=== PATIENT | female | born 1980 | race Caucasian/White ===

== ENCOUNTER 2019-02-10 00:59 | Emergency (ER) | payer OTHER ==
[~2019-02-10] VITALS: Ht 172.7 cm; Wt 104.3 kg
[~2019-02-10 00:59] MED LIST: ACETAMINOPHEN-1 EAC1 PO; ADVIL200 M2 PO; BACTRIM DS TAB1 EACH PO; COUGH MEDICATION; NORCO 5-325 TA1 EACH PO; PHENERGAN 25 MG25 MG PO; VICODIN 5-5001 EACH PO
[2019-02-10 01:04] VITALS: BP 166/85
[2019-02-10] MEDS ORDERED: GENTAK5 ML TOP (01:17)
== END 2019-02-10 01:33 | disposition home or self-care (01) ==
LOC: M.ERS 00:59
DX: H01.004 Unspecified blepharitis left upper eyelid (principal); B30.9 Viral conjunctivitis, unspecified; Z98.890 Other specified postprocedural states; Z98.51 Tubal ligation status

== ENCOUNTER 2019-03-22 17:07 | Emergency (ER) | payer OTHER ==
[~2019-03-22] VITALS: Ht 157.5 cm; Wt 96.6 kg
[~2019-03-22 17:07] MED LIST changes: +GENTAK5 ML TOP
[2019-03-22] MEDS ORDERED: IBUPROFEN 800800 MG PO (18:00)
[2019-03-22] MEDS ORDERED: KEFLEX500 M1 PO (18:00)
[2019-03-22 18:25] VITALS: BP 184/84
== END 2019-03-22 18:27 | disposition home or self-care (01) ==
LOC: M.ERS 17:07
DX: S91.111A Laceration without foreign body of right great toe without damage to nail, initial encounter (principal); F17.200 Nicotine dependence, unspecified, uncomplicated; Z98.890 Other specified postprocedural states; W20.8XXA Other cause of strike by thrown, projected or falling object, initial encounter; Y93.01 Activity, walking, marching and hiking; Y92.89 Other specified places as the place of occurrence of the external cause; Y99.8 Other external cause status

== ENCOUNTER 2019-06-18 10:16 | Emergency (ER) | payer OTHER ==
[~2019-06-18] VITALS: Ht 175.3 cm; Wt 99.8 kg
[~2019-06-18 10:16] MED LIST changes: +IBUPROFEN 800800 MG PO; +KEFLEX500 M1 PO
[2019-06-18 10:57] LABS: ABSOLUTE BASOPHILS 0.1 thou/uL (0.0-0.2); ABSOLUTE EOSINOPHILS 0.2 thou/uL (0.0-0.7); ABSOLUTE LYMPHOCYTES 1.7 thou/uL (0.8-5.3); ABSOLUTE MONOCYTES 0.9 thou/uL (0.0-1.2); ABSOLUTE NEUTROPHILS 6.4 thou/uL (1.6-8.1); BASOPHILS 0.9 %; HEMATOCRIT 41.2 % (37.0-47.0); LYMPHOCYTES 18.3 %; MCH 29.9 pg (26.0-34.0); MCV 87.8 fL (80.0-100.0); MONOCYTES 9.8 %; NUCLEATED RBCS 0 /100WBC; PLATELET COUNT* 332 thou/uL (150-400); RBC 4.69 mil/uL (4.20-5.00); RDW-CV 13.6 % (10.5-14.5); WBC 9.2 thou/uL (4.0-11.0)
[2019-06-18 11:03] LABS: CREATININE 0.9 mg/dL (0.6-1.3)
[2019-06-18 11:08] LABS: ALBUMIN 3.2 g/dL (3.4-5.0); TOTAL BILIRUBIN 0.4 mg/dL (<0.1-1.0); TOTAL PROTEIN 7.9 g/dL (6.4-8.2)
[2019-06-18 11:32] LABS: URINE BILIRUBIN NEGATIVE (Negative); URINE BLOOD NEGATIVE (Negative); URINE CLARITY CLEAR; URINE COLOR YELLOW; URINE GLUCOSE-RANDOM NEGATIVE (Negative); URINE KETONES NEGATIVE (Negative); URINE LEUKOCYTES-REFLEX 1+ (Negative); URINE NITRITE-REFLEX POSITIVE (Negative); URINE PROTEIN NEGATIVE (Negative); URINE SPECIFIC GRAVITY 1.025 (1.005-1.030); URINE UROBILINOGEN 0.2 E.U./dl (0.2-1.0)
[2019-06-18 11:37] LABS: BACTERIA-REFLEX >30 Many /HPF (None Seen); CASTS None Seen /LPF (None Seen); CRYSTALS None Seen /LPF (None Seen); MUCUS 4-6 Moderate strn/LPF (None Seen); SQUAMOUS 4-10 Moderate /LPF (0-3); URINE RBC 0-2 Rare /HPF (0-2); URINE WBC-REFLEX 6-15 Few /HPF (0-5)
[2019-06-18] MEDS ORDERED: NORCO 5-325 TA1 EAC1 PO (12:35)
[2019-06-18] MEDS ORDERED: KEFLEX500 M1 PO (12:35)
[2019-06-18] MEDS ORDERED: ZOFRAN ODT4 MG DISSOLVE (12:35)
[2019-06-18 13:04] VITALS: BP 133/86
== END 2019-06-18 13:04 | disposition home or self-care (01) ==
LOC: M.ERS 10:16
PROVIDERS: Emergency Medicine Emergency Medical Services
DX: N12 Tubulo-interstitial nephritis, not specified as acute or chronic (principal); Z98.890 Other specified postprocedural states

== ENCOUNTER 2019-12-02 21:19 | Emergency (ER) | payer OTHER ==
[~2019-12-02] VITALS: Ht 175.3 cm; Wt 136.1 kg
[~2019-12-02 21:19] MED LIST changes: +NORCO 5-325 TA1 EAC1 PO; +ZOFRAN ODT4 MG DISSOLVE
[2019-12-02 21:45] VITALS: BP 145/70
== END 2019-12-02 21:46 | disposition home or self-care (01) ==
LOC: M.ERS 21:19
DX: S80.862A Insect bite (nonvenomous), left lower leg, initial encounter (principal); Z98.890 Other specified postprocedural states; Z98.51 Tubal ligation status; W57.XXXA Bitten or stung by nonvenomous insect and other nonvenomous arthropods, initial encounter; Y93.89 Activity, other specified; Y92.89 Other specified places as the place of occurrence of the external cause; Y99.8 Other external cause status

== ENCOUNTER 2020-04-11 10:35 | Emergency (ER) | payer OTHER ==
[~2020-04-11] VITALS: Ht 175.3 cm; Wt 122.5 kg
[2020-04-11 11:23] LABS: INFLUENZA A ANTIGEN Negative (Negative); INFLUENZA B ANTIGEN Negative (Negative)
[2020-04-11 12:59] LABS: ABSOLUTE BASOPHILS 0.1 thou/uL (0.0-0.2); ABSOLUTE LYMPHOCYTES 0.4 thou/uL (0.8-5.3); ABSOLUTE MONOCYTES 0.8 thou/uL (0.0-1.2); ABSOLUTE NEUTROPHILS 4.2 thou/uL (1.6-8.1); EOSINOPHILS 0.7 %; HEMATOCRIT 35.7 % (37.0-47.0); HEMOGLOBIN 11.8 gm/dL (12.0-15.0); LYMPHOCYTES 7.9 %; MCH 29.2 pg (26.0-34.0); MCHC 33.2 g/dL (28.0-37.0); MCV 87.9 fL (80.0-100.0); MONOCYTES 15.1 %; MPV 7.5 fl. (7.2-11.1); NUCLEATED RBCS 0 /100WBC; PLATELET COUNT* 246 thou/uL (150-400); POLYS 75.3 %; RBC 4.06 mil/uL (4.20-5.00); RDW-CV 13.4 % (10.5-14.5); WBC 5.5 thou/uL (4.0-11.0)
[2020-04-11 13:09] LABS: CALCIUM 7.7 mg/dL (8.5-10.1); CREATININE 0.9 mg/dL (0.6-1.3)
[2020-04-11 13:14] LABS: ALBUMIN 2.8 g/dL (3.4-5.0); TOTAL BILIRUBIN 0.3 mg/dL (<0.1-1.0); TOTAL PROTEIN 6.5 g/dL (6.4-8.2)
[2020-04-11 15:41] VITALS: BP 124/78
--- NOTE | 2020-04-11 16:35 | EKG ---
[place] [address] ELECTROCARDIOGRAM REPORT Name: TRACY HALL Room: [facility]#: [id number] Admission: 04/11/20 Attend Phys: Discharge: 04/11/20 Date of : 78 Date of Service: 04/11/20 1324 Report #: [id number] THIS REPORT FOR: //name// [facility] ED Test Date: 2020-04-11 Test Time: 13:24:39 Pat Name: TRACY HALL Department: Room: Gender: F Machine Fitter: KAITLYNN : 1980 Requested By: Juancarlos Marino Order Number: [id number] MD: Lex Sanchez Measurements Intervals [place] Rate: 105 P: 64 MS: 138 QRS: 47 QRSD: 89 T: 58 QT: 331 QTc: 438 Interpretive Statements Sinus tachycardia Baseline wander in lead(s) V2 No previous ECG available for comparison Electronically Signed On 04-11-2020 16:35:21 PLASTIC MANAGER by Lex Sanchez [email or web address] <ELECTRONICALLY SIGNED> By: Lex Sanchez MD, [facility] 04/11/20 1635 1324 23 Lex Sanchez MD, FAC /EPI
== END 2020-04-11 15:44 | disposition home or self-care (01) ==
LOC: M.ERS 10:35
PROVIDERS: Emergency Medicine Emergency Medical Services
DX: U07.1 COVID-19 (principal)

== ENCOUNTER 2020-04-23 05:40 | Emergency (ER) | payer OTHER ==
[~2020-04-23] VITALS: Ht 172.7 cm; Wt 104.3 kg
[2020-04-23 06:19] VITALS: BP 155/93
--- NOTE | 2020-04-23 15:13 | EKG ---
[place] [address] ELECTROCARDIOGRAM REPORT Name: TRACY HALL Room: [facility]#: [id number] Admission: 04/23/20 Attend Phys: Discharge: 04/23/20 Date of : 78 Date of Service: 04/23/20 0554 Report #: [id number] THIS REPORT FOR: //name// [facility] ED Test Date: 2020-04-23 Test Time: 05:54:19 Pat Name: TRACY HALL Department: Room: Gender: F It Investment/Portfolio Manager: NETTA : 1980 Requested By: Chioma Abreu Order Number: [id number] MD: Bayron Mccoy Measurements Intervals [place] Rate: 110 P: 68 [place]: 142 QRS: 47 QRSD: 89 T: 56 QT: 338 QTc: 458 Interpretive Statements Sinus tachycardia Minimal ST depression, lateral leads Compared to ECG 04/11/2020 13:24:39 ST (T wave) deviation now present Electronically Signed On 04-23-2020 15:13:11 DIRECTOR OF BUSINESS SYSTEMS by Bayron Mccoy [email or web address] <ELECTRONICALLY SIGNED> By: Bayron Mccoy MD, FAC 04/23/20 1513 0554 0554 Bayron Mccoy MD, [facility] /EPI
== END 2020-04-23 06:19 | disposition left against medical advice (07) ==
LOC: M.ERS 05:40
DX: R07.89 Other chest pain (principal); I10 Essential (primary) hypertension

== ENCOUNTER 2020-12-08 16:20 | Emergency (ER) | payer OTHER ==
[~2020-12-08] VITALS: Ht 172.7 cm; Wt 108.9 kg
[2020-12-08] MEDS ORDERED: IBUPROFEN 800800 M1 PO (17:35)
[2020-12-08 18:05] VITALS: BP 135/93
== END 2020-12-08 18:05 | disposition home or self-care (01) ==
LOC: M.ERS 16:20
DX: S93.492A Sprain of other ligament of left ankle, initial encounter (principal); S93.692A Other sprain of left foot, initial encounter; Z87.891 Personal history of nicotine dependence; W10.8XXA Fall (on) (from) other stairs and steps, initial encounter; Y93.89 Activity, other specified; Y92.89 Other specified places as the place of occurrence of the external cause; Y99.8 Other external cause status

== ENCOUNTER 2021-02-10 05:29 | Emergency (ER) | payer OTHER ==
[~2021-02-10] VITALS: Ht 172.7 cm; Wt 108.9 kg
[~2021-02-10 05:29] MED LIST changes: +IBUPROFEN 800800 M1 PO
[2021-02-10 06:12] LABS: HEMATOCRIT 45.9 % (37.0-47.0); HEMOGLOBIN 15.2 gm/dL (12.0-15.0); MCH 29.7 pg (26.0-34.0); MCHC 33.2 g/dL (28.0-37.0); MCV 89.5 fL (80.0-100.0); MPV 7.6 fl. (7.2-11.1); RBC 5.13 mil/uL (4.20-5.00); RDW-CV 14.2 % (10.5-14.5); WBC 17.4 thou/uL (4.0-11.0)
[2021-02-10 06:20] LABS: CALCIUM 9.2 mg/dL (8.5-10.1); CREATININE 1.1 mg/dL (0.6-1.3); POTASSIUM 4.2 mmol/L (3.5-5.1)
[2021-02-10 06:21] LABS: INFLUENZA A ANTIGEN Negative (Negative); INFLUENZA B ANTIGEN Negative (Negative)
[2021-02-10 06:25] LABS: ALBUMIN 3.5 g/dL (3.4-5.0); TOTAL BILIRUBIN 0.6 mg/dL (<0.1-1.0); TOTAL PROTEIN 8.5 g/dL (6.4-8.2)
[2021-02-10 07:04] LABS: SALICYLATE < 2.8 mg/dL (2.8-20.0)
[2021-02-10 07:05] LABS: URINE BILIRUBIN NEGATIVE (Negative); URINE BLOOD NEGATIVE (Negative); URINE CLARITY CLEAR; URINE COLOR YELLOW; URINE GLUCOSE-RANDOM NEGATIVE (Negative); URINE KETONES NEGATIVE (Negative); URINE LEUKOCYTES TRACE (Negative); URINE NITRITE NEGATIVE (Negative); URINE PROTEIN TRACE (Negative); URINE SPECIFIC GRAVITY >= 1.030 (1.005-1.030); URINE UROBILINOGEN 0.2 E.U./dl (0.2-1.0)
[2021-02-10 07:05] LABS: ACETAMINOPHEN < 2 ug/mL (10-30); ALCOHOL < 10 mg/dL (<10)
[2021-02-10 07:27] LABS: AMP/METHAMP POSITIVE (Negative); BARBITURATES Negative (Negative); BENZODIAZEPINES Negative (Negative); COCAINE Negative (Negative); METHADONE Negative (Negative); OPIATES Negative (Negative); PCP Negative (Negative); THC Negative (Negative)
[2021-02-10] MEDS ORDERED: ZOFRAN ODT4 MG DISSOLVE (07:49)
[2021-02-10 08:03] VITALS: BP 121/77
--- NOTE | 2021-02-10 11:42 | EKG ---
[place] [address] ELECTROCARDIOGRAM REPORT Name: TRACY HALL Room: [facility]#: [id number] Admission: 02/10/21 Attend Phys: Discharge: 02/10/21 Date of : 78 Date of Service: 02/10/21 0552 Report #: [id number] THIS REPORT FOR: //name// [facility] ED Test Date: 2021-02-10 Test Time: 05:52:31 Pat Name: TRACY HALL Department: Room: Gender: Branch Service Leader: [place] : 1980 Requested By: Chioma Abreu Order Number: [id number] MD: Bayron Mccoy Measurements Intervals [place] Rate: 113 P: 68 [place]: 138 QRS: 39 QRSD: 88 T: 62 QT: 322 QTc: 442 Interpretive Statements Sinus tachycardia Compared to ECG 04/23/2020 05:54:19 ST (T wave) deviation no longer present Electronically Signed On 02-10-2021 11:42:23 COMMUNITY ORGANIZER by Bayron Mccoy [email or web address] <ELECTRONICALLY SIGNED> By: Bayron Mccoy MD, FAC 02/10/21 1142 0552 0552 Bayron Mccoy MD, [facility] /EPI
== END 2021-02-10 08:06 | disposition home or self-care (01) ==
LOC: M.ERS 05:29
PROVIDERS: Personal Emergency Response Attendant
DX: R11.2 Nausea with vomiting, unspecified (principal); Z20.822 Contact with and (suspected) exposure to COVID-19; Z98.890 Other specified postprocedural states; Z98.51 Tubal ligation status; Z87.891 Personal history of nicotine dependence